=== PATIENT | male | born 1990 | race Caucasian/White ===

== ENCOUNTER 2018-07-06 11:23 | Emergency (ER) | payer MEDICAID ==
[2018-07-06] MEDS ORDERED: lamoTRIgine 100 MG TAB PO ONE (11:37)
--- NOTE | 2018-07-06 11:38 | EDPHY ---
H & P Smoking Status: Current every day smoker Time Seen by Provider: 07/06/18 11:32 HPI/ROS: CHIEF COMPLAINT: Seizure and right shoulder injury HISTORY OF PRESENT ILLNESS: Epilepsy diagnosed 18 years ago, on Lamictal 300 mg in the morning and 450 mg at night, missed last night's dose in this morning , took and UBER from [place] to go to a wedding and had a seizure at the wedding, in [place]. Presents with left shoulder pain, last dislocated it several months ago. 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 Patient had a grand mal tonic-clonic seizure today. Right now he feels fine except for his left shoulder pain. Not associated with weakness or numbness in the left hand. Pain does not radiate, worse with movement REVIEW OF SYSTEMS: Eye: no change in vision ENT: no sore throat Cardiac: no chest pain or syncope Pulmonary: no cough or SOB Abdomen: no vomiting, diarrhea, abdominal pain Musculoskeletal: HPI, no neck or back pain Skin: no rash Neuro: no headache Constitutional: no fever : no urinary symptoms A comprehensive 10 point review of systems is otherwise negative aside from elements mentioned in the history of present illness. PAST MEDICAL HISTORY: Seizure disorder and bilateral shoulder surgery. Social history: Visiting from [place] General Appearance: Alert and conversant, cooperative. Eyes: No scleral icterus. Did not bite his tongue. ENT, Mouth: Normal mucous membranes. Respiratory: Normal respiratory effort, breath sounds equal, lungs are clear to auscultation. Cardiovascular: Regular rate and rhythm. Gastrointestinal: Abdomen is soft and non tender. Neurological: Alert, face symmetric, normal motor and sensory in extremities. Normal sensation in the skin of both deltoids. Normal motor sensory and vascular in the left hand. Skin: Warm and dry, no rashes. Musculoskeletal: No midline spinal tenderness. He does have a left AC step- off. Well-healed surgical incisions on both shoulders. Psychiatric: Not agitated. Emergency Department course/MDM: 1206: Octavia reviewed shoulder, unclear if dislocated. Attempts by PAMELA Wells to relocate, unsuccessful; will plan for IV sedation for relocation. 1413: Attempts made to relocate the shoulder under procedural sedation by PAMELA. Patient still feels like it is dislocated, CT left shoulder ordered. 1507: Awake alert, he feels that his shoulder is back in place and CT confirms this, discussion with Georgette. Normal motor sensory and vascular. Patient warned that there at least 1 bone chip off the glenoid, could be from today although unknown if pre-existing. He will follow up with his orthopedist. (Richard Christian) Constitutional: Initial Vital Signs Temperature (C) 36.8 C 07/06/18 11:27 Heart Rate 84 07/06/18 11:27 Respiratory Rate 16 07/06/18 11:27 Blood Pressure 125/54 H 07/06/18 11:27 O2 Sat (%) 97 07/06/18 11:27 O2 Delivery Mode [Post Room Air Procedure 4th] O2 Delivery Mode [Post Nasal Cannula Procedure 3rd] O2 Delivery Mode [Post Non-Rebreather Mask Procedure 2nd] O2 Delivery Mode [Post Non-Rebreather Mask Procedure 1st] O2 Delivery Mode [Procedural Non-Rebreather Mask 3rd] O2 Delivery Mode [Procedural Non-Rebreather Mask 2nd] O2 Delivery Mode [Procedural Non-Rebreather Mask 1st] O2 Delivery Mode [.Immediate Non-Rebreather Mask Pre-Procedure] O2 Delivery Mode Room Air O2 (L/minute) [Post Procedure 2 3rd] O2 (L/minute) [Post Procedure 15 2nd] O2 (L/minute) [Post Procedure 15 1st] O2 (L/minute) [Procedural 3rd] 15 O2 (L/minute) [Procedural 2nd] 15 O2 (L/minute) [Procedural 1st] 15 O2 (L/minute) [.Immediate Pre- 15 Procedure] Allergies/Adverse Reactions: No Known Allergies Allergy (Verified 07/06/18 11:34) Home Medications: Medication Instructions Recorded LaMICtal 06/26/16 Medical Decision Making - Diagnostics Imaging: I viewed and interpreted images myself - Diagnostics Imaging Results: Imaging Impressions Shoulder X-Ray 07/06/18 11:30 Impression: Difficult to absolutely confirm normal location of the left shoulder joint. Certainly no acute fracture is identified. If clinically indicated consider noncontrast CT for further evaluation. A message was left for Dr. Richard Christian at 12:31 PM. Shoulder X-Ray 07/06/18 14:02 Impression: The humeral head is normally located. Procedures: Procedure: Dislocation reduction. Procedural sedation provided by . The dislocation of the left shoulder was reduced using traction and counter traction usual and customary technique without complications. The patient did re-dislocate and re-reduction was performed and he was splinted pain careful attention not to move the upper extremity. Post reduction the patient's neurovascular exam is normal. Post reduction x-ray demonstrates reduction of the joint to the anatomic position. The procedure was performed by myself. (Devendra Wells) Procedure: Procedural sedation. Indication: Dislocation reduction A pre-sedation evaluation was completed on the patient at 13 40 including medical history, allergies and medications, last oral intake, previous experience with sedation, airway assessment, physical examination. Patient is an appropriate candidate for procedural sedation. The risks, benefits, and alternatives of the sedation were discussed with the patient including but not limited to need for airway intervention, cardiovascular complications, ; and consent obtained. The patient is ASA class 1E.Mallampati and 3/3/2 airway assessments were completed. A time out was completed. The patient was sedated with propofol. The patient was monitored with continuous pulse oximetry , linen grader and end tidal CO2. There were no complications and no significant hypoxemia. I remained at the bedside for the sedation. The total time I spent in the procedural sedation was 22 min. At 1440 the patient is alert, awake, and back to neurological and respiratory baseline. (Richard Christian) Differential Diagnosis: Differential diagnosis considered for a seizure including but not limited to electrolyte abnormality, alcohol withdrawal, medication noncompliance, head injury, and breakthrough seizure. (Richard Christian) - Data Points Medications Given: Discontinued Medications Fentanyl (Sublimaze) 50 mcg IVP EDNOW ONE Stop: 07/06/18 12:27 Last Admin: 07/06/18 12:36 Dose: 50 mcg Hydromorphone HCl (Dilaudid) 1 mg IVP EDNOW ONE Stop: 07/06/18 12:58 Last Admin: 07/06/18 13:06 Dose: 1 mg Lamotrigine (Lamictal) 450 mg PO EDNOW ONE Stop: 07/06/18 11:38 Last Admin: 07/06/18 11:52 Dose: 450 mg Ondansetron HCl (Zofran) 4 mg IVP EDNOW ONE Stop: 07/06/18 12:28 Last Admin: 07/06/18 12:36 Dose: 4 mg Propofol (Diprivan) 200 mg IVP EDNOW ONE Stop: 07/06/18 14:13 Last Admin: 07/06/18 14:20 Dose: 200 mg Departure - Departure Disposition: Home, Routine, Self-Care Clinical Impression: Seizure disorder, Recurrent dislocation, left shoulder Condition: Good Instructions: Shoulder Dislocation (ED), Epilepsy (ED) Additional Instructions: No driving until OK by your doctor. restart Lamictal as prescribed. Referrals: Robert Payne MD [Medical Doctor] - As per Instructions
[2018-07-06] MEDS ORDERED: fentaNYL 100 MCG/2 ML INJ IVP ONE (12:26)
[2018-07-06] MEDS ORDERED: ONDANSETRON 4 MG/2 ML VIAL IVP ONE (12:27)
[2018-07-06] MEDS ORDERED: HYDROmorphONE/DILAUDID 1 MG/ML INJ IVP ONE (12:57)
[2018-07-06] MEDS ORDERED: PROPOFOL 200 MG/20 ML VIAL ONE (13:51)
[2018-07-06] MEDS ORDERED: PROPOFOL 200 MG/20 ML VIAL IVP ONE (14:12)
[2018-07-06 15:29] VITALS: BP 130/83
== END 2018-07-06 15:29 | disposition home or self-care (01) ==
LOC: EDUNIT# → EDBD
PROC: 0RSKXZZ Reposition Left Shoulder Joint, External Approach (ICD-10-PCS; principal; 2018-07-06)
DX: S43.005A Unspecified dislocation of left shoulder joint, initial encounter (principal); G40.909 Epilepsy, unspecified, not intractable, without status epilepticus
CPT/HCPCS: 96374; J1170; J2405; J2704; J3010